=== PATIENT | female | born 1950 | race American Indian/Alaskan Native ===

== ENCOUNTER 2016-08-19 09:22 | Day surgery (SDC) | payer MEDICARE ==
[~2016-08-19 09:22] MED LIST: DIPRIVAN 10 MG/ML IV ONE; NEO SYNEPHRINE ONE; ROBINUL ONE; XYLOCAINE MPF 2% ONE
[2016-08-19] MEDS ORDERED: WATER FOR IRRIG STERILE IR ONE (09:52)
[2016-08-19] MEDS ORDERED: NACL 0.9% 1000 ML 1,000 ML IV SCH (10:00)
--- NOTE | 2016-08-19 10:03 | Anesthesia Day of Surgery ---
Anesthesia Day of Surgery - Day of Surgery Patient Examined: Yes Patient H&P Reviewed: Yes Patient is NPO: Yes
[2016-08-19] MEDS ORDERED: ROBINUL ONE (10:04)
--- NOTE | 2016-08-19 10:04 | Anesthesia Consultation ---
Anesthesia Consult and Med Hx Date of service: 08/19/16 - Airway Anesthetic Teeth Evaluation: Poor (many missing teeth) ROM Head & Neck: Adequate Mental/Hyoid Distance: Inadequate Mallampati Class: Class III Intubation Access Assessment: Probably Good - Pulmonary Exam CTA: Yes - Cardiac Exam Cardiac Exam: RRR - Pre-Operative Health Status ASA Pre-Surgery Classification: ASA3 Proposed Anesthetic Plan: MAC - Pulmonary Hx Smoking: No Hx Asthma: Yes (moderate) Hx Respiratory Symptoms: Yes (coughing with sputum due to allergies) COPD: No Hx Pneumonia: Yes Hx Sleep Apnea: No - Cardiovascular System Hx Hypertension: Yes (resolved. Not on meds) Hx Valvular Heart Disease: Yes (MVP) - Central Nervous System Hx Psychiatric Problems: Yes (anxiety) - Gastrointestinal Hx Gastroesophageal Reflux Disease: Yes - Endocrine Hx End Stage Renal Disease: No - Hematic Hx Anemia: Yes Hx Sickle Cell Disease: Yes (TRAIT ONLY.) - Other Systems Hx Alcohol Use: No Hx Substance Use: No Hx Cancer: No Hx Obesity: Yes - Additional Comments Anesthesia Medical History Comments: dysphagia, bloating of abdomen
[2016-08-19] MEDS ORDERED: NACL 0.9% NEBU ONE (10:57)
[2016-08-19] MEDS ORDERED: PROVENTIL IH ONE (10:57)
[2016-08-19] MEDS ORDERED: DIPRIVAN 10 MG/ML IV ONE ×2 (11:04)
--- NOTE | 2016-08-19 11:16 | Operative Report ---
Operative Report Operative Report: Date of procedure: 08/19/2016 Procedure: Colonoscopy with snare polypectomy, hot biopsy polypectomy, submucosal injection with saline, multiple hemoclip applications. Attending physician: Juan Flanagan MD Business Representative: Juan Flanagan MD Indication: Patient is a 65-year-old female who presented for surveillance colonoscopy because of a history of colon polyps with evidence of intramucosal invasive cancer with complete resection during polypectomy. This colonoscopy is done to evaluate patient so that treatment may be directed based on the findings. Consent: Informed consent was obtained after advising the patient and family regarding nature of this procedure, its indications, potential benefits as well as possible complications including but not limited to bleeding perforation and adverse reaction to medication, infection as well as other cardiopulmonary complications. An informed written and verbal consent was then obtained after due opportunity was provided for questions and answers. Monitoring: Patient was monitored continuously with pulse oximetry and electrocardiographic recordings as well as blood pressure recordings. Vital signs remained stable throughout this procedure with no untoward events. Preoperative assessment: Patient was assessed immediately prior to this procedure for capacity to tolerate monitored anesthesia care and moderate sedation as well as general anesthesia. Patient's ASA classification is 3, Mallampati class is 2, Hyomental distance is 3. Instrument: [employer] videocolonoscope Medications: Propofol, given intravenously in divided doses. For details please refer to anesthesia records. Description of procedure: Patient was placed in the left lateral decubitus position after achieving sedation, a digital rectal examination was performed following which the colonoscope was introduced into the anal verge and advanced to the cecum which was identified by the cecal valve, the appendiceal orifice, as well as by the cecal strap and direct transillumination. The colonoscope was subsequently withdrawn with careful inspection of all mucosal surfaces. Patient tolerated this procedure well and was subsequently taken to the recovery room. The following findings were noted. Findings: The colonoscopic preparation was fair. In the cecum, patient had a sessile 5 mm polyp that was removed by hot biopsy polypectomy. After removal the site was noted to bleed easily and a Hemoclip was applied for hemostasis. In the proximal ascending colon, there was another polyp it measured approximately 8 mm there was a flat polyp. It was elevated with saline injection and then removed by snare electrocautery and retrieved. After removal a Hemoclip was applied over the site. The rest of the ascending colon was normal. The transverse colon was normal. The descending colon was normal. The sigmoid colon was normal. This the anal rectum was normal. On the retroflex view at the anal verge however patient had fairly prominent internal hemorrhoids. Impression: Cecal polyp status post hot biopsy polypectomy and Hemoclip applied medication. Ascending colon polyp status post submucosal injection with saline to elevate it and snare polypectomy and Hemoclip application Prominent internal hemorrhoids. Plan: Follow pathology report. Repeat colonoscopy in 5 years. High-fiber diet.
--- NOTE | 2016-08-19 11:17 | Discharge Summary ---
Short Stay Discharge Plan Activity: advance as tolerated Weight Bearing Status: Weight Bear as Tolerated Diet: regular Additional Instructions: Post Sedation D/C Instructions When you return home you may resume your regular diet unless otherwise directed. -Go directly home from the hospital and rest quietly. You may resume normal activities tomorrow. -Do NOT drive, return to work, operate any machinery or make any important personal or business decisions today. -Do NOT drink any alcohol or take nerve or sleeping drugs. They add to the effects of the medicine still present in your body. Follow up with doctor for treatment plan Follow up with: LISA WHALEN MD [Primary Care Provider] - 7 Days
[2016-08-19 11:37] VITALS: BP 131/77
== END 2016-08-19 09:23 | disposition home or self-care (01) ==
LOC: GIO 09:22
PROVIDERS: ATTEND Internal Medicine Gastroenterology
DX: K63.5 Polyp of colon (principal); K64.8 Other hemorrhoids; J45.909 Unspecified asthma, uncomplicated; F41.9 Anxiety disorder, unspecified; K21.9 Gastro-esophageal reflux disease without esophagitis; D57.3 Sickle-cell trait; E66.9 Obesity, unspecified; Z68.28 Body mass index [BMI] 28.0-28.9, adult; Z87.01 Personal history of pneumonia (recurrent); Z90.710 Acquired absence of both cervix and uterus; Z79.899 Other long term (current) drug therapy; Z98.890 Other specified postprocedural states; Z83.3 Family history of diabetes mellitus; Z82.3 Family history of stroke; Z83.79 Family history of other diseases of the digestive system
CPT/HCPCS: 45381; 45384; 45385; 88305; J2370; J2704; J7030